=== PATIENT | female | born 1985 | race Two or more races ===

== ENCOUNTER 2024-07-10 15:09 | Emergency (ER) | payer OTHER, SELFPAY ==
[2024-07-10 15:10] VITALS: BP 111/81; PULSE 117; RESP 18; TEMP 37.4; O2SAT 100
--- NOTE | 2024-07-10 16:36 | EX.ED.DYSGE1 ---
HPI History of Present Illness Chief Complaint: General Illness Informant: patient Limited: language barrier (Senior Living Advisor iPad was used) Onset/Context/Timing Onset: Weeks (1) Context: Gradual Onset Timing: Continuous Quality: Aching Location: Generalized Worsened by: Movement Relieved by: Nothing Narrative Narrative: Patient presents with generalized aching, headache, and cough that has been getting worse over the past week. Patient states her symptoms are worse when she goes to work. The patient states her pain is worse with certain movements. Patient admits to a cough and rhinorrhea. Patient admits to general myalgias. Patient denies any fevers or chills. Patient states she has been taking ibuprofen with minimal relief. [facility] Medical History Breast mass Allergy/AdvReac Type Severity Reaction Status Date / Time No Known Allergies Allergy Verified 07/10/24 15:10 Surgical History H/O: Social History Smoking Status: Never smoker ROS ROS ED Constitutional Constitutional ED: Denies chills or fever(s) Eyes Eyes: Reports change in vision; Denies blurry vision ENT ENT ED: Reports rhinorrhea; Denies sore throat Cardiovascular Cardiovascular: Denies chest pain or palpitations Respiratory/Chest Respiratory/Chest: Reports cough; Denies dyspnea Gastrointestinal Gastrointestinal: Denies nausea or vomiting Genitourinary Genitourinary ED: Denies dysuria or hematuria Musculoskeletal Musculoskeletal: Reports back pain and myalgias; Denies neck pain Integumentary Denies abscess or rash Neurologic Neurologic: Reports headache(s); Denies weakness Allergic/Immunologic Allergic/Immunologic ED: Denies mouth swelling or urticaria EXAM Physical Exam Const Vital Signs: 07/10/24 15:10 07/10/24 16:36 Temperature 99.3 F H Temperature Source Oral Pulse Rate 117 H Respiratory Rate 18 Respiratory Effort Normal Respiratory Pattern Normal Blood Pressure 111/81 H Blood Pressure Mean 91 Pulse Ox 100 Oxygen Delivery Method Room Air Positive well nourished and well developed General Appearance ED: well developed and NAD HEENT Reports moist mucous membranes Neck supple and no JVD Resp normal respiratory effort and clear to auscultation bilaterally Cardio regular rhythm Rate: tachycardic GI non-tender and non-distended Palpation: soft Neuro oriented x3, CN's II-XII intact bilaterally and no sensory deficits noted Sensorium / Orientation: alert Motor Exam: strength 5/5 throughout Psych mental status grossly normal MDM MDM MDM Narrative Medical decision making narrative: Differential diagnosis includes viral illness, upper respiratory infection, and dehydration. COVID-19, influenza, and RSV PCR will be obtained to assess for viral illness. Lab Data Lab results narrative: COVID-19 PCR was reviewed and was negative. Influenza PCR was reviewed and was negative for influenza A and influenza B. RSV PCR was reviewed and was negative. Treatment and Re-Evaluation :: Patient was given a dose of Tylenol. Patient is given p.o. fluids. Patient was advised of her findings. Patient was instructed to continue ibuprofen or Tylenol as needed for fevers or pain. Patient was instructed to drink plenty of fluids. Patient was instructed to follow-up with a primary care physician in 3 to 5 days. Patient understood and was agreeable with the plan. All questions were answered. Discharge Plan Triage Chief Complaint: General Illness ED Provider: Kavon Corey Dx/Rx/DC Orders Clinical Impression: Viral illness, Myalgia Instructions: ED Myalgias, ED Viral Syndrome (Adult) Stand Alone Forms: ED Work / School Excuse Primary Care Provider: Care Physician,No Primary Referrals: Veda Torres MD [Med Staff - Marketing Database Consultant] - 5-7 Days Care Physician,No Primary [Primary Care Provider] - Print Language: Brazilian Creole Disposition Disposition: Home, Self Care
[2024-07-10] MEDS: Acetaminophen 500 MG Tablet 1000 MG PO (16:42)
== END 2024-07-10 18:34 | disposition home or self-care (01) ==
PROVIDERS: Emergency Provider Emergency Medicine; Visit Provider Emergency Medicine
DX: B34.9 Viral infection, unspecified (principal)
CPT/HCPCS: 87631; 99282

== ENCOUNTER 2024-08-13 15:02 | Emergency (ER) | payer OTHER, SELFPAY ==
[2024-08-13] VITALS (14 sets, daily range): BP systolic 94–118; BP diastolic 69–82; PULSE 113–136; RESP 16–30; TEMP 36.6–37.2; O2SAT 94–100; BMI 19.6
--- NOTE | 2024-08-13 15:48 | EX.ED.DYSGE1 ---
HPI History of Present Illness Chief Complaint: Wound Narrative Narrative: Patient is a 38-year-old female with a recent diagnosis of breast mass back in May after being seen by her BRASS CLEANER who presented to the emergency department from physician's office with concern for elevated heart rate low blood pressure and not feeling well. Box Worker services were used professionally. According to the patient and significant other at bedside they note that she was supposed to have a biopsy today. Patient denies any family history of breast cancer. [facility] Medical History Breast mass Allergy/AdvReac Type Severity Reaction Status Date / Time No Known Allergies Allergy Verified 08/13/24 15:04 Surgical History H/O: Social History (Updated 08/13/24 @ 16:40 by Orin Humphries) household members: significant other housing: house Smoking Status: Never smoker ROS ROS ED ROS Narrative Constitutional: Denies fevers, chills, headaches, lightness, dizziness Eyes: Denies change in vision double vision blurry vision Cardiovascular: Denies chest pain or palpitations Respiratory: Complains shortness of breath as noted above Abdomen: Denies abdominal pain nausea vomit diarrhea : Denies urinary symptoms Neurological: Denies numbness, weakness, tingling Musculoskeletal: Denies back pain Skin: Complains of left breast mass as noted above EXAM Physical Exam Narrative Exam Narrative: General: Patient lying in bed rest comfortably did not appear to be in acute distress Head: Atraumatic, normocephalic Eyes: PERRL bilateral, EOMI bilateral, no conjunctival injection noted Neck: Soft, supple, trachea midline Cardiovascular: Patient tachycardic with a regular rhythm Respiratory: Clear to auscultation bilaterally Abdomen: Soft, nondistended, tenderness palpation Extremities: +5/5 strength noted in bilateral upper and lower extremities, no pedal edema noted on exam Neurological: Patient was follow commands that she was at [facility] years 2024 Skin: Large mass noted in the 1 o'clock position on the left breast no concern for infection Const Vital Signs: 08/13/24 15:04 08/13/24 15:06 08/13/24 16:39 Temperature 97.9 F 97.9 F 98.9 F Temperature Source Temporal Temporal Oral Pulse Rate 136 H 136 H 113 H Respiratory Rate 17 18 16 Blood Pressure 94/80 94/80 105/78 Blood Pressure Mean 84 84 87 Pulse Ox 100 100 98 Oxygen Delivery Method Room Air Room Air 08/13/24 16:39 08/13/24 17:00 08/13/24 18:00 Temperature 98.3 F 98.3 F Temperature Source Oral Oral Pulse Rate 122 H 122 H Respiratory Rate 17 20 H Blood Pressure 99/69 104/74 Blood Pressure Mean 79 84 Pulse Ox 96 98 99 Oxygen Delivery Method Room Air Room Air 08/13/24 19:00 08/13/24 20:53 Temperature 98.4 F 98.4 F Temperature Source Oral Oral Pulse Rate 127 H 126 H Respiratory Rate 24 H 20 H Blood Pressure 105/82 H 118/79 Blood Pressure Mean 89 92 Pulse Ox 95 95 Oxygen Delivery Method Room Air Room Air MDM MDM MDM Narrative Medical decision making narrative: Patient is a 38-year-old female who was sent by [facility] with a chief complaint of left back pain and left breast wound. Patient will have a workup performed here on the differential diagnose includes but not limited to pulmonary embolism, metastatic disease, COVID, flu, other viral illness. Once workup is obtained reviewed she will be reevaluated. Patient be given 30 cc/kg bolus of IV fluids which were ordered at 1625. Documentation was reviewed that was printed off and the patient brought here from [facility] Department of General Surgery. According to progress note she was seen by her BRASS CLEANER in May found to have a rather large left breast mass that was found on ultrasound and have the lymph nodes enlarged in the left axilla as well as the right axilla. This was back in May. Patient's radiology report of her mammogram from 07/30/2024 was reviewed and showed a large 6.6 cm mass in the left breast at the 1 o'clock position 4 cm from the nipple highly suggestive of malignancy they are recommending ultrasound-guided biopsy. There are multiple enlarged lymph nodes in the left axilla highly suggestive of malignancy ultrasound-guided biopsy of this is also recommended. 1.4 cm irregular lesion in the right axilla suspicion for malignancy as well recommending ultrasound-guided biopsy. Patient's a CBC was reviewed and showed a white blood count of 12,000, hemoglobin was noted to be 7.1 however this was repeated when down to 6.2, MCV of 79.3, platelet count was noted to be low at 8 this was repeated and was noted be low indicating thrombocytopenia 9 she will be given 3 units of platelets here in the emergency department, lymphocyte count of 44.8, absolute neutrophil count of 3.5. Patient has metamyelocytes at 11, myelocytes 4, schistocytes, teardrop cells. Patient INR 1.3, PT of 16. Patient sodium was 130, potassium was 5.3 although hemolysis was present. Patient's creatinine normal at 0.89. Patient's glucose of 116, lactic acid of 5.9. Patient AST and ALT were 413 and 153 respectively with a total bilirubin of 3.42. Patient's troponin was 9 with a delta troponin of 8. Patient's EKG was reviewed and showed sinus tachycardia with a rate of 126 beats per minutes. Patient's CT abdomen pelvis as well as CTA of her chest was reviewed and showed findings consistent with diffuse metastatic disease involving the chest abdomen pelvis. A large left breast mass is identified with associated and probably necrotic left axillary lymph nodes. There is abnormal lymph nodes in the right side as well. She has diffuse metastatic disease throughout the liver. Diffuse osseous metastatic disease noted. Moderate loculated right-sided pleural effusion with a moderate left-sided pleural effusion as well. Bilateral pulmonary nodules which are suspicious for metastases. Patient be given vancomycin and cefepime. No large pulmonary embolism I discussed results with the patient and significant other bedside. At this point time patient will warrant transfer. Discussed case with [facility] and Dr. Khan will except patient for transfer. Bed is available therefore should be transferred immediately. Updated patient and family all course concerns answered. Lab Data Labs: Laboratory Results - last 24 hr 08/13/24 08/13/24 08/13/24 16:30 17:18 18:02 WBC HUMAN RESOURCES ADMINISTRATOR 12.6 H Corrected WBC 7.9 RBC 3.23 L 2.80 L Hgb 7.1 L 6.2 L Hct 25.7 L 22.2 L MCV 79.6 L 79.3 L MCH 22.0 L 22.1 L MCHC 27.6 L 27.9 L RDW Std Deviation 61.9 H 62.3 H RDW Coeff of Aida 22.9 H 23.3 H Plt Count 8 L* 9 L* MPV TNP TNP Immature Gran % (Auto) HUMAN RESOURCES ADMINISTRATOR 9.300 H Neut % (Auto) HUMAN RESOURCES ADMINISTRATOR 27.5 L Lymph % (Auto) HUMAN RESOURCES ADMINISTRATOR 44.8 H [place] % (Auto) HUMAN RESOURCES ADMINISTRATOR 14.3 H Eos % (Auto) HUMAN RESOURCES ADMINISTRATOR 1.3 Baso % (Auto) HUMAN RESOURCES ADMINISTRATOR 2.8 H Absolute Neuts (auto) 5.5 3.5 Absolute Lymphs (auto) 4.34 5.66 H Total Counted 100 Neutrophils % (Manual) 35 L Band Neutrophils % 9 H Lymphocytes % (Manual) 35 Monocytes % (Manual) 6 Metamyelocytes % 11 H Myelocytes % 4 H Nucleated RBC % HUMAN RESOURCES ADMINISTRATOR 30.4 H Nucleated RBCs/100 WBC 56 H Platelet Estimate MKD DEC MKD DEC Polychromasia 1+ 1+ Anisocytosis 2+ 2+ Tear Drop Cells 1+ 1+ Ovalocytes 1+ 1+ Schistocytes 1+ 1+ PT 16.0 H INR 1.3 APTT 31.4 Sodium 130 L Potassium 5.3 H Chloride 99 Carbon Dioxide 17.8 L Anion Gap 14 BUN 22 H Creatinine 0.89 Est GFR (MDRD) Non-Af 85 BUN/Creatinine Ratio 25.1 H Glucose 116 H Lactic Acid 5.9 H* Calcium 10.4 Total Bilirubin 3.42 H AST 413 H ALT 153 H Alkaline Phosphatase 817 H Troponin T High Sens 9 Troponin T Hi Sens 2 Hr Total Protein 6.7 Albumin 2.5 L Globulin 4.2 Albumin/Globulin Ratio 0.6 L Blood Type O POSITIVE Antibody Screen NEGATIVE Crossmatch See Detail 08/13/24 18:53 WBC Corrected WBC RBC Hgb Hct MCV MCH MCHC RDW Std Deviation RDW Coeff of Aida Plt Count MPV Immature Gran % (Auto) Neut % (Auto) Lymph % (Auto) [place] % (Auto) Eos % (Auto) Baso % (Auto) Absolute Neuts (auto) Absolute Lymphs (auto) Total Counted Neutrophils % (Manual) Band Neutrophils % Lymphocytes % (Manual) Monocytes % (Manual) Metamyelocytes % Myelocytes % Nucleated RBC % Nucleated RBCs/100 WBC Platelet Estimate Polychromasia Anisocytosis Tear Drop Cells Ovalocytes Schistocytes PT INR APTT Sodium Potassium Chloride Carbon Dioxide Anion Gap BUN Creatinine Est GFR (MDRD) Non-Af BUN/Creatinine Ratio Glucose Lactic Acid Calcium Total Bilirubin AST ALT Alkaline Phosphatase Troponin T High Sens Troponin T Hi Sens 2 Hr 8 Total Protein Albumin Globulin Albumin/Globulin Ratio Blood Type Antibody Screen Crossmatch Radiography Diagnostic Testing: Clinical Impression(s) from Imaging Studies Abdomen/Pelvis CT 08/13/24 17:40 IMPRESSION: Findings consistent with diffuse metastatic disease involving the chest, abdomen and pelvis. A large left breast mass is identified with associated and probably necrotic left axillary lymph nodes. The abnormal axillary lymph nodes on the right side. There is diffuse metastatic disease throughout the liver. Diffuse osseous metastasis is also noted. Primary origin is difficult to identify although breast is suspected. Recommend tissue sampling. Moderate loculated right-sided pleural effusion. Moderate left-sided pleural effusion. Bilateral pulmonary nodules which are suspicious for metastasis. No large pulmonary embolism. Other findings as above. Reading Location: [facility] Chest CTA 08/13/24 17:40 IMPRESSION: Findings consistent with diffuse metastatic disease involving the chest, abdomen and pelvis. A large left breast mass is identified with associated and probably necrotic left axillary lymph nodes. The abnormal axillary lymph nodes on the right side. There is diffuse metastatic disease throughout the liver. Diffuse osseous metastasis is also noted. Primary origin is difficult to identify although breast is suspected. Recommend tissue sampling. Moderate loculated right-sided pleural effusion. Moderate left-sided pleural effusion. Bilateral pulmonary nodules which are suspicious for metastasis. No large pulmonary embolism. Other findings as above. 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
--- NOTE | 2024-08-13 16:21 | EKG12_ITS ---
Test Reason : TACHYCARDIA Blood Pressure : */* mmHG Vent. Rate : 126 BPM Atrial Rate : 126 BPM P-R Int : 88 ms QRS Dur : 68 ms QT Int : 288 ms P-R-T Axes : 51 54 33 degrees QTcB Int : 417 ms Sinus tachycardia with short AL Otherwise normal ECG Confirmed by LESLEY KEITA, AQUILINO ([id number]), editor newspaper SOTO ELLIOTT ([id number]) on 08/14/2024 8:30:51 AM Referred By: Confirmed By: AQUILINO SUTTON MD
[2024-08-13] MEDS: 0.9% Normal Saline (1000mL) 1,000 ML 999 ML IV ×3 (16:33→18:51)
[2024-08-13 16:50] LABS: Hematocrit 25.7 % (37-47); Hemoglobin 7.1 g/dL (12.0-15.0); Mean Corp Hgb Conc 27.6 g/dL (32-36); Mean Corpuscular Volume 79.6 fL (81-99); POSITIVE COUNT YES; POSITIVE DIFFERENTIAL YES; POSITIVE MORPHOLOGY YES; RBC Distribution Width CV 22.9 % (11.6-14.6); RBC Distribution Width SD 61.9 fl (35.1-43.9); Red Blood Count 3.23 M/mm3 (4.2-5.4)
[2024-08-13 16:58] LABS: International Normalized Ratio 1.3; Partial Thromboplast Time 31.4 Seconds (24.1-36.2)
[2024-08-13 17:00] LABS: Platelet Count 8 K/mm3 (150-450)
[2024-08-13 17:01] LABS: Differential Indicated MANUAL DIFF
[2024-08-13 17:20] LABS: Troponin T High Sensitivity 9 ng/L (<=14)
[2024-08-13 17:23] LABS: Corrected WBC 7.9 K/mm3 (4.4-11.0); Lymphocyte 35 % (19-41); Metamyelocyte 11 % (0-1); Myelocyte 4 % (0-0); Neutrophil-Segmented 35 % (47-70); Nucleated Red Bld Cells,Manual 56 % (0-5); Total Cells Counted 100 (MANUAL DIFF)
[2024-08-13 17:25] LABS: Monocyte 6 % (0-10); Neutrophil-Band 9 % (0-5)
[2024-08-13 17:26] LABS: Anisocytosis 2+; Ovalocyte 1+; Platelet Estimate MKD DEC (ADEQ); Polychromasia 1+; Tear Drop Cell 1+
[2024-08-13 17:27] LABS: Schistocytes 1+
[2024-08-13 17:29] LABS: Absolute Lymphocyte Count 4.34 X10^3/uL (0.83-4.51); Absolute Neutrophil Count 5.5 X10^3/uL (2.0-7.7)
[2024-08-13 17:34] LABS: Absolute Lymphocyte Count 5.66 X10^3/uL (0.83-4.51); Absolute Neutrophil Count 3.5 X10^3/uL (2.0-7.7); Basophil# 0.35 X10^3/uL; Basophil% 2.8 % (0-1); Eosinophil# 0.17 X10^3/uL; Eosinophils% 1.3 % (0-5); Hematocrit 22.2 % (37-47); Hemoglobin 6.2 g/dL (12.0-15.0); Lymphocyte # 5.66 X10^3/ul (0.83-4.51); Lymphocyte % 44.8 % (19-41); Mean Corp Hgb Conc 27.9 g/dL (32-36); Mean Corpuscular Hgb 22.1 pg (27.0-32.0); Mean Corpuscular Volume 79.3 fL (81-99); Monocyte% 14.3 % (0-10); NRBC Flagged by Analyzer 30.4 % (0-5); Neutrophil # 3.48 X10^3/uL (2.7-7.7); Neutrophil % 27.5 % (47-70); POSITIVE COUNT YES; POSITIVE DIFFERENTIAL YES; POSITIVE MORPHOLOGY YES; RBC Distribution Width CV 23.3 % (11.6-14.6); RBC Distribution Width SD 62.3 fl (35.1-43.9); White Blood Count 12.6 K/mm3 (4.4-11.0)
[2024-08-13 17:37] LABS: Platelet Count 9 K/mm3 (150-450)
[2024-08-13 17:38] LABS: Differential Indicated SCAN CRITERIA MET
--- NOTE | 2024-08-13 17:40 | CT_ITS ---
PROCEDURE: CTA CHEST W/WO CONTRAST; ABDOMEN/PELVIS W IV CONT ONLY 08/13/2024 REASON FOR EXAM: LEFT BREAST MASS, SOB, TACHU; ABD PAIN, HX OF BREAST MASS TECHNIQUE: CT of the chest, abdomen and pelvis was performed after IV contrast administration. Multiplanar reformats were obtained afterwards. One or more dose reduction techniques were used (e.g., Automated exposure control, adjustment of the mA and/or kV according to patient size, use of iterative reconstruction technique. COMPARISON: None provided. FINDINGS: CT chest: The trachea and central bronchial tree are patent. A large loculated right-sided pleural effusion is present with large amount of fluid present within the fissures. A moderate left-sided pleural effusion is present. There is no large pericardial effusion. The heart is normal in size. No large filling defect is present within the pulmonary arteries to definitively suggest acute pulmonary embolism. There is interstitial thickening present within the lungs, consistent with pulmonary edema. There are suspicious pulmonary nodules present. For example there is a 7.7 mm nodule within the left upper lobe (image 174/220 a 5 mm node is seen within the left upper lobe (image 191/20) a 1 cm nodule seen within the left lower lobe laterally (image 132/220 a 1.2 cm left upper lobe subpleural anterior nodule is present (image 105/220. These findings are worrisome. A 5.9 x 5.6 cm left breast mass is identified. Abnormally enlarged left axillary lymph node is present which measures up to 3.6 x 2.7 cm best seen on image 146/220. There are other adjacent nodules present. Some of this nodules demonstrate low-level internal density, which may suggest areas of necrosis. These findings are highly consistent with metastatic disease. There are abnormally enlarged lymph nodes present within the right axillary region measuring up to 1.5 cm (image 152/220). The osseous structures within the chest demonstrate diffuse moth eaten appearance. This is highly worrisome for diffuse bony metastasis. No definite vertebral compression fracture is seen. CT abdomen/pelvis: There is no free air within the abdomen and pelvis. There are innumerable masses throughout the liver consistent with diffuse metastatic disease. The gallbladder demonstrates diffuse wall thickening and it is contracted. The spleen appears heterogeneous in appearance, which is nonspecific. There is mild thickening of the bilateral adrenal gland. The pancreas is within normal limits. The bilateral kidneys are without evidence of hydronephrosis or obstructive uropathy. Urinary bladder is nondistended. Uterus appears somewhat atrophic although incompletely characterized. Large amount of stool is seen within the rectum. There is no bowel obstruction. A normal appendix is not identified. There is moderate amount of fluid seen within the pelvis, etiology to be determined. The osseous structures demonstrate diffuse moth-eaten appearance which is suggestive of diffuse osseous metastatic disease. CT/Abdomen/Pelvis W IV Cont ONLY IMPRESSION: Findings consistent with diffuse metastatic disease involving the chest, abdome n and pelvis. A large left breast mass is identified with associated and probably necrotic left axillary lymph nodes. Th e abnormal axillary lymph nodes on the right side. There is diffuse metastatic disease throughout the liver. Diffuse osseous meta stasis is also noted. Primary origin is difficult to identify although breast is suspected. Recommend tissue sampling. Moderate loculated right-sided pleural effusion. Moderate left-sided pleural e ffusion. Bilateral pulmonary nodules which are suspicious for metastasis. No large pulmonary embolism. Other findings as above. Reading Location: [id number]
[2024-08-13 17:52] LABS: Lactic Acid 5.9 mmol/L (0.0-2.0)
[2024-08-13 18:02] LABS: Anisocytosis 2+; Ovalocyte 1+; Platelet Estimate MKD DEC (ADEQ); Polychromasia 1+; Schistocytes 1+; Tear Drop Cell 1+
[2024-08-13 18:35] LABS: ALB/GLOB Ratio 0.6 RATIO (0.9-2.4); AST(SGOT) 413 U/L (<=31); Alanine Aminotransfer ALT/SGPT 153 U/L (<=34); Albumin, Serum 2.5 g/dL (3.5-5.0); Alkaline Phosphatase 817 U/L (35-104); Anion Gap 14 (5-15); BUN 22 mg/dL (4-19); BUN/Creat Ratio 25.1 RATIO (10-20); Calcium,Total 10.4 mg/dL (7.6-11.0); Carbon Dioxide 17.8 mmol/L (21.0-32.0); Chloride 99 mmol/L (98-108); Creatinine, Serum 0.89 mg/dL (0.70-1.20); EST Glomerular Filtration Rate 85 (>60); Globulin 4.2 g/dL (2.2-4.2); Glucose 116 mg/dL (70-99); Potassium 5.3 mmol/L (3.3-5.1); Protein, Total 6.7 g/dL (5.9-8.4); Sodium Level 130 mmol/L (133-145); Total Bilirubin 3.42 mg/dL (0.00-1.30)
[2024-08-13 19:24] LABS: Troponin T High Sens 2 HR 8 ng/L (<=14)
[2024-08-13] MEDS: Cefepime HCl 2 GM in 0.9% Normal Saline (100mL MB+) 100 ML IV (19:39)
[2024-08-13] MEDS: Vancomycin IV 1,000 MG/200 ML BAG 200 MG IV (21:33)
--- NOTE | 2024-08-13 22:28 | ED.RN ---
Transport crew at bedside and assumed care
--- NOTE | 2024-08-13 22:43 | ED.RN ---
Blood products continued upon transfer
[2024-08-14 05:58] LABS: Pathologist Review May foll
== END 2024-08-13 22:25 | disposition other institution (70) ==
PROVIDERS: Emergency Provider Emergency Medicine; Visit Provider Emergency Medicine
DX: C50.412 Malignant neoplasm of upper-outer quadrant of left female breast (principal); C78.7 Secondary malignant neoplasm of liver and intrahepatic bile duct; C78.01 Secondary malignant neoplasm of right lung; C78.02 Secondary malignant neoplasm of left lung; C79.51 Secondary malignant neoplasm of bone; J90 Pleural effusion, not elsewhere classified; D69.6 Thrombocytopenia, unspecified; R59.0 Localized enlarged lymph nodes; E87.20 Acidosis, unspecified
CPT/HCPCS: 71275; 74177; 80053; 83605; 84484; 85025; 85610; 85730; 86850; 86900; 86901; 87040; 87631; 93005; 96361; 96365; 96367; 99285; P9016; Q9967; A4216